=== PATIENT | male | born 1950 | race Caucasian/White ===

== ENCOUNTER → 2024-01-14 10:49 | Outpatient (BNVA) | payer MEDICARE, SELFPAY | PROVIDERS: PCP Internal Medicine; Visit Provider Nurse Practitioner Family | DX: L57.0 Actinic keratosis (principal); L57.8 Other skin changes due to chronic exposure to nonionizing radiation; L81.4 Other melanin hyperpigmentation; L82.1 Other seborrheic keratosis; D69.2 Other nonthrombocytopenic purpura | CPT/HCPCS: 17000; 99213 ==

== ENCOUNTER → 2025-01-16 10:24 | Outpatient (BNVA) | payer MEDICARE, SELFPAY | PROVIDERS: PCP Internal Medicine; Visit Provider Nurse Practitioner Family | DX: L82.1 Other seborrheic keratosis (principal); L57.8 Other skin changes due to chronic exposure to nonionizing radiation; L81.4 Other melanin hyperpigmentation; D69.2 Other nonthrombocytopenic purpura; L82.0 Inflamed seborrheic keratosis; R20.8 Other disturbances of skin sensation; Z78.9 Other specified health status; L53.8 Other specified erythematous conditions; L57.0 Actinic keratosis | CPT/HCPCS: 17000; 17110; 99213 ==

== ENCOUNTER → 2025-03-28 14:58 | Outpatient (BNVA) | payer MEDICARE, SELFPAY | PROVIDERS: PCP Internal Medicine; Visit Provider Nurse Practitioner Family | DX: L82.1 Other seborrheic keratosis (principal); L57.8 Other skin changes due to chronic exposure to nonionizing radiation; L81.4 Other melanin hyperpigmentation; D69.2 Other nonthrombocytopenic purpura; L57.0 Actinic keratosis | CPT/HCPCS: 17000; 99213 ==

== ENCOUNTER 2025-04-16 19:17 | Emergency (ER) | payer MEDICARE, SELFPAY ==
[2025-04-16] VITALS (7 sets, daily range): BP systolic 142–208; BP diastolic 76–89; PULSE 67–75; RESP 15–18; TEMP 36.7; O2SAT 96–99; BMI 24.8
--- NOTE | 2025-04-16 19:57 | ECG_ITS ---
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1950 Requested By: Scar Woods Order Number: [id number] Radha MD: DA SPAIN Measurements Intervals [place] Rate: 71 P: 70 AR: 187 QRS: -21 QRSD: 110 T: 75 QT: 372 QTc: 405 Interpretive Statements SINUS RHYTHM WITH OCCASIONAL VENTRICULAR PREMATURE COMPLEXES BORDERLINE LEFT AXIS DEVIATION [QRS AXIS < -20] Compared to ECG 11/02/2019 21:01:56 Ventricular premature complex(es) now present Sinus arrhythmia no longer present Electronically Signed On 04-17-2025 19:03:56 CDT by DA SPAIN [email or web address]
[2025-04-16 19:59] LABS: Basophils # 0.1 10^3/uL (0.0-0.1); Basophils % 1.5 %; Eosinophils # 0.2 10^3/uL (0.0-0.8); Eosinophils % 3.1 %; Hematocrit 41.9 % (37-53); Lymphocytes # 2.5 10^3/uL (0.8-4.8); Lymphocytes % 34.7 %; Mean Corpuscular Hemoglobin 30.8 pg (27-33); Mean Corpuscular Volume 96.3 fl (82-101); Mean Platelet Volume 9.9 fL (7.4-10.4); Monocytes # 0.8 10^3/uL (0.2-0.9); Monocytes % 11.5 %; Neutrophils # 3.51 10^3/uL (1.8-7.7); Neutrophils % 49.1 %; Nucleated Red Blood Cells % 0 %; Platelet Count 290 10^3/cmm (157-399); Red Blood Count 4.35 10^6/uL (3.85-5.65); Red Cell Distribution Width 12.3 % (12.1-15.1); White Blood Count 7.15 10^3/uL (3.29-11.43)
[2025-04-16 20:20] LABS: Bilirubin Urine Negative (Negative); Blood Urine Negative (Negative); Glucose Urine UA Negative (Normal); Ketones Urine Negative (Negative); Leukocyte Esterase Urine Negative (Negative); Nitrate Urine Negative (Negative); Protein Urine Negative (Negative); Specific Gravity, Urine 1.009 (1.005-1.030); Urine Appearance Clear (CLEAR); Urine Color Yellow (Yellow); Urobilinogen Urine 0.2 mg/dL (Negative)
[2025-04-16 20:21] LABS: Troponin(5th) Baseline 7 ng/L (0-15)
[2025-04-16 20:22] LABS: Alanine Aminotransferase 20 U/L (0-41); Albumin Level 4.4 g/dL (3.5-5.2); Alkaline Phosphatase 65 U/L (40-130); Anion Gap 14.8 (5-19); Aspartate Amino Transferase 22 U/L (0-40); Blood Urea Nitrogen 14 mg/dL (8-23); Calcium 9.5 mg/dL (8.5-10.5); Carbon Dioxide 28 mmol/L (22-29); Chloride 103 mmol/L (98-107); Creatinine Clr Calc Pharmacy 87.5011; Globulin 2.3 g/dL (1.3-4.6); Glucose 140 mg/dL (65-115); Osmolality Calculated 297 mOsm/kg (285-295); Potassium 3.8 mmol/L (3.5-5.1); Sodium 142 mmol/L (136-145); Total Bilirubin 0.3 mg/dL (0.15-1.2); Total Protein 6.7 g/dL (6.6-8.7)
[2025-04-16 20:26] LABS: Add Urine Microscopic? YES; Bacteria Urine None Seen /hpf; Hyaline Casts Urine 0-4 /lpf; RBC Urine 0-2 /hpf (0-2); Squamous Epithelial Cell Urine 0-5 /hpf (0-5); WBC Urine 0-5 /hpf (0-5)
--- NOTE | 2025-04-16 20:46 | ED_ITS ---
HPI - General Adult 2 General: Chief complaint: General Medical Stated complaint: bp issues Time Seen by Provider: 04/16/25 20:14 History of Present Illness: Patient presents with elevated blood pressure and associated head symptoms. Reports BP typically runs mildly elevated (160/78), but has been notably higher recently, measuring 196/81. Patient describes new onset of head symptoms starting this week, characterized as feeling 'hot' and 'funny, ' without specific association with heartbeat. Medical history includes hypertension managed with Lisinopril, which was initially started at 40mg then reduced to 20mg due to side effects. Also takes alprazolam 0.25mg PRN for anxiety, using approximately 0.5 tablet occasionally. Denies chest pain, shortness of breath, flank pain, or blood in urine. No vision changes reported. Patient endorses current anxiety. Reports one day this week was symptom-free. No prior head imaging. Related Data Home Medications ?Medication ?Instructions ?Recorded ?Confirmed alprazolam 0.25 mg tablet 0.25 mg PO TID PRN 12/25/20 01/13/23 atorvastatin 20 mg tablet 20 mg PO DAILY 12/25/2012/25 lisinopril 20 mg tablet 20 mg PO DAILY 12/25/2012/25 metformin 1,000 mg tablet 1,000 mg PO DAILY 12/25/20 0 01/13/23 multivitamin (Daily Multi-Vitamin 1 tab PO DAILY 12/2501/13/23 tablet) Previous Rx's ?Medication ?Instructions ?Recorded imiquimod 5 % topical cream packet 1 applic topical ON CE #24 ea 01/13/23 ketoconazole 2 % topical cream 1 applic topical BID #6 0 grams 01/13/23 clonidine HCl 0.1 mg tablet 0.1 mg PO Q1H PRN hyperten sive 04/16/25 emergency #14 tabs Allergies Allergy/AdvReac Type Severity Reaction Status Date / Time No Known Allergies Allergy Verified 01/13/23 15:57 Review of Systems 2 General: Reports: 10 or more systems reviewed and unremarkable except in HPI and below PFSH ED 2 PFSH: Medical History Anxiety HTN (hypertension) Hyperlipidemia Social History Smoking and tobacco/nicotine status: never used tobacco/nicotine Alcohol intake: never Physical Exam 2 Const: COMMON NORMALS: no acute distress, average body habitus, patient oriented x3 and alert HENMT: COMMON NORMALS: normocephalic and moist oral mucous membranes HEAD & SCALP: normocephalic Cardio: COMMON NORMALS: regular rate and regular rhythm RATE: regular rate RHYTHM: regular rhythm Neuro: COMMON NORMALS: patient oriented x3, CN's II-XII intact bilaterally, moves all extremities and no focal motor deficits SENSORIUM/ORIENTATION: Yes alert Course 2 Vital Signs: Vital signs: Vital Signs Temperature 98.1 F 04/16/25 19:38 Pulse Rate 74 04/16/25 23:00 Respiratory Rate 16 04/16/25 23:00 Blood Pressure 142/76 04/16/25 23:00 Pulse Oximetry 98 04/16/25 23:00 Oxygen Delivery Me thod Room Air 04/16/25 23:00 MDM - General Adult Medical Decision Making 1. Hypertensive Urgency - BP significantly elevated above baseline with associated symptoms - Current Lisinopril 20mg appears inadequate for BP control - Will check basic labs to evaluate for end-organ damage 2. Anxiety - May be contributing to elevated BP - Currently managed with PRN alprazolam Plan: - Monitor BP response to interventions - Obtain basic metabolic panel and other relevant labs - Consider adjustment of antihypertensive regimen - Consider head imaging if symptoms persist - Follow-up with PCP for medication adjustment and ongoing management Lab Data 04/16/25 19:53 04/16/25 21:07 Laboratory Results WBC 7.15 10^3/uL (3.29-11.43) 04/16/25 19:53 RBC 4.35 10^6/uL (3.85-5.65) 04/16/25 19:53 Hgb 13.40 g/dL (11.27-16.99) 04/16/25 19:53 Hct 41.9 % (37-53) 04/16/25 19:53 MCV 96.3 fl (82-101) 04/16/25 19:53 MCH 30.8 pg (27-33) 04/16/25 19:53 MCHC 32.0 g/dL (30-55) 04/16/25 19:53 RDW 12.3 % (12.1-15.1) 04/16/25 19:53 Plt Count 290 10^3/cmm (157-399) 04/16/25 19:53 MPV 9.9 fL (7.4-10.4) 04/16/25 19:53 Neut % (Auto) 49.1 % 04/16/25 19:53 Lymph % (Auto) 34.7 % 04/16/25 19:53 [place] % (Auto) 11.5 % 04/16/25 19:53 Eos % (Auto) 3.1 % 04/16/25 19:53 Baso % (Auto) 1.5 % 04/16/25 19:53 Neut # (Auto) 3.51 10^3/uL (1.8-7.7) 04/16/25 19:53 Lymph # (Auto) 2.5 10^3/uL (0.8-4.8) 04/16/25 19:53 [place] # (Auto) 0.8 10^3/uL (0.2-0.9) 04/16/25 19:53 Eos # (Auto) 0.2 10^3/uL (0.0-0.8) 04/16/25 19:53 Baso # (Auto) 0.1 10^3/uL (0.0-0.1) 04/16/25 19:53 Nucleated RBC % (auto) 0 % 04/16/25 19:53 Nucleated RBCs # 0.0 /100WBC 04/16/25 19:53 Sodium 141 mmol/L (136-145) 04/16/25 21:07 Potassium 4.2 mmol/L (3.5-5.1) 04/16/25 21:07 Chloride 102 mmol/L (98-107) 04/16/25 21:07 Carbon Dioxide 29 mmol/L (22-29) 04/16/25 21:07 Anion Gap 14.2 (5-19) 04/16/25 21:07 BUN 14 mg/dL (8-23) 04/16/25 21:07 Creatinine 0.8 mg/dL (0.7-1.2) 04/16/25 21:07 GFR Calculation Not Reportable 04/16/25 21:07 Glucose 126 mg/dL (65-115) H 04/16/25 21:07 Calculated Osmolality 294 mOsm/kg (285-295) 04/16/25 21:07 Calcium 9.7 mg/dL (8.5-10.5) 04/16/25 21:07 Total Bilirubin 0.3 mg/dL (0.15-1.2) 04/16/25 19:53 AST 22 U/L (0-40) 04/16/25 19:53 ALT 20 U/L (0-41) 04/16/25 19:53 Alkaline Phosphatase 65 U/L (40-130) 04/16/25 19:53 Troponin T Baseline 7 ng/L (0-15) 04/16/25 19:53 Troponin T 120 Minute 6.45 ng/L (0-15) 04/16/25 21:07 Delta Troponin T -0.55 ABS# (0-10) L 04/16/25 21:07 Total Protein 6.7 g/dL (6.6-8.7) 04/16/25 19:53 Albumin 4.4 g/dL (3.5-5.2) 04/16/25 19:53 Globulin 2.3 g/dL (1.3-4.6) 04/16/25 19:53 TSH 2.25 uIU/mL (0.27-4.20) 04/16/25 21:07 Urine Color Yellow (Yellow) 04/16/25 19:58 Urine Appearance Clear (CLEAR) 04/16/25 19:58 Urine pH 7.0 (5-7) 04/16/25 19:58 Ur Specific [place] 1.009 (1.005-1.030) 04/16/25 19:58 Urine Protein Negative (Negative) 04/16/25 19:58 Urine Glucose (UA) Negative (Normal) 04/16/25 19:58 Urine Ketones Negative (Negative) 04/16/25 19:58 Urine Blood Negative (Negative) 04/16/25 19:58 Urine Nitrate Negative (Negative) 04/16/25 19:58 Urine Bilirubin Negative (Negative) 04/16/25 19:58 Urine Urobilinogen 0.2 mg/dL (Negative) 04/16/25 19:58 Ur Leukocyte Esterase Negative (Negative) 04/16/25 19:58 Urine RBC 0-2 /hpf (0-2) 04/16/25 19:58 Urine WBC 0-5 /hpf (0-5) 04/16/25 19:58 Ur Squamous Epith Cells 0-5 /hpf (0-5) 04/16/25 19:58 Amorphous Sediment Not Reportable 04/16/25 19:58 Urine Bacteria None seen /hpf (NONE) 04/16/25 19:58 Hyaline Casts 0-4 /lpf H 04/16/25 19:58 No radiology studies performed this visit ED provider radiology interpretation(s): None Other Data 74-year-old male in with concerns of some hypertensive urgency. He was given anxiolytic and clonidine and his blood pressure went down to 142/76 he was able to rest and reports that his symptoms resolved. He does seem a little anxious still on discharge instruction reviewed. Ominous send amount some as needed clonidine and turn things over those outpatient physician to continue any workup if indicated for episodic hypertension. Lab data here was fairly reassuring. Discharge Plan Discharge Patient Disposition: Home Clinical Impression: Hypertensive urgency Condition: Stable Prescriptions: New clonidine HCl 0.1 mg tablet 0.1 mg PO Q1H MDD 3 PRN (Reason: hypertensive emergency) Qty: 14 0RF Rx Instructions: do not exceed 3 doses per 24 hrs No Action ketoconazole 2 % cream 1 applic topical BID Qty: 60 2RF Rx Instructions: Apply twice daily to entire foot and between toes for 4 weeks and prn for flares. imiquimod 5 % cream in packet 1 applic topical ONCE Qty: 24 1RF Rx Instructions: Apply thin film Thursday-Thursday ( Off weekends) for 6 weeks. metformin 1,000 mg tablet 1,000 mg PO DAILY atorvastatin 20 mg tablet 20 mg PO DAILY lisinopril 20 mg tablet 20 mg PO DAILY alprazolam 0.25 mg tablet 0.25 mg PO TID PRN multivitamin [Daily Multi-Vitamin] Tablet 1 tab PO DAILY Discharge Orders: Discharge ED (Routine); Ordered 04/16/25 Ordered By: Tam Alford Referrals: Jr Wallis DO [Primary Care Provider, Family Practice] Discharge Diet: Low Salt Discharge Activity: Resume usual activity Patient Instructions: Opioid Safety, Pain Management Activity Restrictions/Additional Instructions: 1. Rest, take prescription as directed. Follow low-salt diet. 2. Take clonidine for persistent elevation of blood pressure greater than 185/110 3. Follow-up with primary care next week for ongoing treatment and management of hypertension. Print Language: Polish Coding Level of Care Code ED Customer Support Specialist for Mariel Walter
[2025-04-16] MEDS: LORazepam 1 mg Tablet PO (21:06)
[2025-04-16 21:37] LABS: Troponin 5 2HR 6.45 ng/L (0-15)
[2025-04-16 21:38] LABS: Troponin 5 2HR Delta -0.55 ABS# (0-10)
[2025-04-16 21:47] LABS: Anion Gap 14.2 (5-19); Blood Urea Nitrogen 14 mg/dL (8-23); Calcium 9.7 mg/dL (8.5-10.5); Carbon Dioxide 29 mmol/L (22-29); Chloride 102 mmol/L (98-107); Creatinine Clr Calc Pharmacy 87.5011; Glucose 126 mg/dL (65-115); Osmolality Calculated 294 mOsm/kg (285-295); Potassium 4.2 mmol/L (3.5-5.1); Sodium 141 mmol/L (136-145); Thyroid Stimulating Hormone 2.25 uIU/mL (0.27-4.20)
--- NOTE | 2025-04-16 21:59 | ECG_ITS ---
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
[2025-04-16] MEDS: cloNIDine 0.1 mg Tablet 0.2 MG PO (22:12)
[2025-04-17 09:11] LABS: Glucose Point of Care 132 mg/dL (70-110)
== END 2025-04-16 23:36 | disposition home or self-care (01) ==
PROVIDERS: Student in an Organized Health Care Education/Training Program; Emergency Provider Family Medicine; PCP Electrodiagnostic Medicine
DX: I16.0 Hypertensive urgency (principal); I10 Essential (primary) hypertension; F41.9 Anxiety disorder, unspecified; Z79.899 Other long term (current) drug therapy
CPT/HCPCS: 36415; 36416; 80048; 80053; 81001; 82962; 84443; 84484; 85025; 93005; 99284; J9999

== ENCOUNTER → 2025-06-29 14:10 | Outpatient (BNVA) | payer MEDICARE, SELFPAY | PROVIDERS: PCP Electrodiagnostic Medicine; Visit Provider Nurse Practitioner Family | DX: S51.812A Laceration without foreign body of left forearm, initial encounter (principal); X58.XXXA Exposure to other specified factors, initial encounter; L82.1 Other seborrheic keratosis; L57.8 Other skin changes due to chronic exposure to nonionizing radiation; L81.4 Other melanin hyperpigmentation; D69.2 Other nonthrombocytopenic purpura; L57.0 Actinic keratosis | CPT/HCPCS: 17000; 99214 ==